=== PATIENT | female | born 1995 | race Caucasian/White ===

== ENCOUNTER 2017-07-02 16:19 | Inpatient (IN) | payer MEDICAID ==
[~2017-07-02] VITALS: Ht 157.5 cm; Wt 75.0 kg
[~2017-07-02 16:19] MED LIST: BUSP15 PO; DOCU250C91 PO; GABA-531 PO; LURA40 PO; MAGOX PO; MVITFE PO
[2017-07-02] MEDS ORDERED: HALO5 PO (16:48)
[2017-07-02 16:59] LABS: BASOPHILS % (AUTO) 0.1 % (0.0-2.0); EOSINOPHILS % (AUTO) 1.2 % (1.0-6.0); HEMATOCRIT 34.5 % (36-46); HEMOGLOBIN 11.5 g/dL (12.0-16.0); LYMPHOCYTES # (AUTO) 1.7 K/uL (1.0-4.8); LYMPHOCYTES % (AUTO) 20.5 % (22.0-44.0); MEAN CORPUSCULAR HEMOGLOBIN 25.9 pg (26.0-34.0); MEAN CORPUSCULAR HGB CONC 33.3 G/dL (31.0-37.0); MEAN CORPUSCULAR VOLUME 78 fL (80-100); MONOCYTES # (AUTO) 0.7 K/uL (0.1-1.0); MONOCYTES % (AUTO) 8.3 % (2.0-9.0); NEUTROPHILS # (AUTO) 5.9 K/uL (1.8-7.7); NEUTROPHILS % (AUTO) 69.9 % (40.0-70.0); PLATELET COUNT (AUTO) 319 K/uL (150-450); RED BLOOD CELL COUNT(AUTO) 4.44 MIL/uL (4.00-5.20); RED CELL DISTRIBUTION WIDTH 16.5 % (11.5-14.5); WHITE BLOOD COUNT (AUTO) 8.5 K/uL (4.5-11.0)
[2017-07-02 17:17] LABS: ANION GAP 8 mmol/L (8-16); CALCIUM, TOTAL 9.1 mg/dL (8.8-10.5); CARBON DIOXIDE 27 mmol/L (22-29); CHLORIDE 105 mmol/L (98-107); CREATININE 0.63 mg/dL (0.60-1.30); GLOMERULAR FILTR. RATE CALC > 60 mL/min (>60); POTASSIUM 4.2 mmol/L (3.5-5.1); SODIUM SERUM 140 mmol/L (136-145); UREA NITROGEN, BLOOD 13 mg/dL (7-18)
[2017-07-02 17:25] LABS: ALANINE AMINOTRANSFERASE 23 U/L (12-78); ALBUMIN 3.5 g/dL (3.4-5.0); ASPARTATE AMINOTRANSFERASE 22 U/L (15-37); TOTAL PROTEIN, SERUM 7.6 g/dL (6.4-8.2)
[2017-07-02 17:37] LABS: SALICYLATE 2.9 mg/dL (2.8-20.0)
[2017-07-02 17:45] LABS: BILIRUBIN,TOTAL 0.1 mg/dL (0.1-1.0)
[2017-07-02 18:08] LABS: ACETAMINOPHEN < 2 mcg/mL (10-30)
[2017-07-02 18:12] LABS: RBC MORPHOLOGY COMMENT ABNORMAL RBC MORPH
[2017-07-02] MEDS ORDERED: LORazepam 2 MG/ML VIAL IM ONE (20:45)
[2017-07-02] MEDS ORDERED: HALOPERIDOL LACTATE 5 MG/ML VIAL ONE (20:56)
[2017-07-02] MEDS ORDERED: DiphenhydrAMINE HCL 50 MG/ML VIAL ONE (20:56)
[2017-07-02] MEDS ORDERED: DiphenhydrAMINE HCL 50 MG/ML VIAL IM ONE (21:00)
[2017-07-02] MEDS ORDERED: HALOPERIDOL LACTATE 5 MG/ML VIAL IM ONE (21:00)
[2017-07-02 21:17] LABS: ACETAMINOPHEN < 2 mcg/mL (10-30)
[2017-07-02 21:35] LABS: APPEARANCE,URINE CLEAR (CLEAR); GLUCOSE, URINE (UA) NEGATIVE (NEGATIVE); KETONES,URINE NEGATIVE (NEGATIVE); LEUKOCYTE ESTERASE ,URINE NEGATIVE (NEGATIVE); OCCULT BLOOD,URINE NEGATIVE (NEGATIVE); PROTEIN,URINE NEGATIVE (NEGATIVE)
[2017-07-02 21:36] LABS: ADD UA MICROSCOPIC NO
[2017-07-02 21:48] LABS: THYROID STIMULATING HORMONE 5.35 uIU/mL (0.36-3.74)
[2017-07-03] MEDS: LORazepam 2 MG TABLET PO PRN ×3 (06:11→16:13)
[2017-07-03 08:10] VITALS: BP 130/87
[2017-07-03] MEDS ORDERED: BACITRACIN 28.4 GM OINTMENT TP PRN (10:45)
[2017-07-03] MEDS: GABAPENTIN 300 MG CAPSULE PO SCH ×3 (13:28→20:23)
[2017-07-03] MEDS ORDERED: INFLUENZA VIRUS VACCINE QVS 2017-18 (3YR+)/PF 60 MCG/0.5 ML SYRINGE IM ONE (14:15)
[2017-07-03] MEDS ORDERED: PNEUMOCOCCAL VACCINE POLYVALENT 0.5 ML VIAL [PPSV23] IM ONE (14:15)
[2017-07-04] MEDS: LORazepam 2 MG TABLET PO PRN ×3 (05:42→16:11)
[2017-07-04 06:11] VITALS: BP 120/65
[2017-07-04] MEDS: GABAPENTIN 300 MG CAPSULE PO SCH ×3 (08:15→16:11)
[2017-07-04] MEDS: NICOTINE 7 MG/24 HOUR PATCH TD SCH (08:15)
[2017-07-04 08:30] VITALS: BP 124/80
[2017-07-04] MEDS: ALBUTEROL SULFATE HFA 90 MCG/PUFF 8 GM INHALER IH PRN (08:36)
[2017-07-04] MEDS: DiphenhydrAMINE HCL 25 MG CAPSULE PO SCH (16:11)
[2017-07-04 18:10] VITALS: BP 123/73
[2017-07-04] MEDS: HALOPERIDOL 10 MG TABLET PO SCH (20:25)
[2017-07-04] MEDS: ZOLPIDEM TARTRATE 10 MG TABLET PO PRN (21:23)
[2017-07-05] MEDS: ALBUTEROL SULFATE HFA 90 MCG/PUFF 8 GM INHALER IH PRN (05:06)
[2017-07-05 05:22] VITALS: BP 123/78
[2017-07-05] MEDS: NICOTINE 7 MG/24 HOUR PATCH TD SCH (08:17)
[2017-07-05] MEDS: LORazepam 2 MG TABLET PO PRN ×2 (08:17→16:32)
[2017-07-05] MEDS: DiphenhydrAMINE HCL 25 MG CAPSULE PO SCH ×2 (08:17→16:32)
[2017-07-05] MEDS: GABAPENTIN 300 MG CAPSULE PO SCH ×3 (08:18→16:32)
[2017-07-05 08:30] VITALS: BP 112/70
[2017-07-05 16:49] VITALS: BP 123/77
[2017-07-05] MEDS: HALOPERIDOL 10 MG TABLET PO SCH (20:26)
[2017-07-05] MEDS: ZOLPIDEM TARTRATE 10 MG TABLET PO PRN (21:03)
[2017-07-06 06:05] VITALS: BP 121/73
[2017-07-06] MEDS: LORazepam 2 MG TABLET PO PRN ×2 (07:05→12:55)
[2017-07-06] MEDS: NICOTINE 7 MG/24 HOUR PATCH TD SCH (08:11)
[2017-07-06] MEDS: DiphenhydrAMINE HCL 25 MG CAPSULE PO SCH ×2 (08:11→16:52)
[2017-07-06] MEDS: GABAPENTIN 300 MG CAPSULE PO SCH ×3 (08:11→16:52)
[2017-07-06 08:42] VITALS: BP 122/75
[2017-07-06 16:29] VITALS: BP 139/72
[2017-07-06] MEDS: HALOPERIDOL 5 MG TABLET PO PRN (16:52)
[2017-07-06] MEDS: HALOPERIDOL 10 MG TABLET PO SCH (20:28)
[2017-07-06] MEDS: ZOLPIDEM TARTRATE 10 MG TABLET PO PRN (21:01)
[2017-07-07 06:33] VITALS: BP 122/79
[2017-07-07] MEDS: HALOPERIDOL 5 MG TABLET PO PRN (07:09)
[2017-07-07] MEDS: LORazepam 2 MG TABLET PO PRN (07:09)
[2017-07-07] MEDS: GABAPENTIN 300 MG CAPSULE PO SCH ×2 (08:09→12:35)
[2017-07-07] MEDS: DiphenhydrAMINE HCL 25 MG CAPSULE PO SCH (08:09)
[2017-07-07] MEDS: NICOTINE 7 MG/24 HOUR PATCH TD SCH (08:11)
[2017-07-07 08:28] VITALS: BP 112/77
[2017-07-07] MEDS ORDERED: DiphenhydrAMINE HCL 50 MG/ML VIAL ONE (10:05)
[2017-07-07] MEDS ORDERED: LORazepam 2 MG/ML VIAL ONE (10:05)
[2017-07-07] MEDS ORDERED: HALOPERIDOL LACTATE 5 MG/ML VIAL ONE (10:05)
[2017-07-07] MEDS ORDERED: GABA-531 PO (12:36)
[2017-07-07] MEDS ORDERED: DIPH25CA85 PO (12:37)
[2017-07-07] MEDS ORDERED: HALO10TA15 PO (12:37)
== END 2017-07-07 14:45 | disposition home or self-care (01) | DRG 750 ==
LOC: EEVIPCON 16:20 → EMS 16:20 → B3A 07-03 07:06 → B2S 07-07 14:39
PROVIDERS: ADMIT Psychiatry & Neurology Psychiatry; ATTEND Psychiatry & Neurology Psychiatry
DX: F25.9 Schizoaffective disorder, unspecified (principal); R45.851 Suicidal ideations; Z78.1 Physical restraint status; S51.812A Laceration without foreign body of left forearm, initial encounter; D64.9 Anemia, unspecified; E03.9 Hypothyroidism, unspecified; F31.9 Bipolar disorder, unspecified; F17.210 Nicotine dependence, cigarettes, uncomplicated; J45.909 Unspecified asthma, uncomplicated; S61.512A Laceration without foreign body of left wrist, initial encounter; X78.9XXA Intentional self-harm by unspecified sharp object, initial encounter; F15.90 Other stimulant use, unspecified, uncomplicated; F12.90 Cannabis use, unspecified, uncomplicated; Y93.89 Activity, other specified; Y92.89 Other specified places as the place of occurrence of the external cause; Z79.899 Other long term (current) drug therapy; Y99.8 Other external cause status
CPT/HCPCS: 84439; 84443; 93005; 96372; 99285; G0480; G0481; J1200; J1630; J2060; J3535

== ENCOUNTER 2017-07-07 23:45 | Emergency (ER) | payer MEDICAID, OTHER ==
[~2017-07-07] VITALS: Ht 157.5 cm; Wt 70.5 kg
[~2017-07-07 23:45] MED LIST changes: -BUSP15 PO; +DIPH25CA85 PO; -DOCU250C91 PO; +HALO10TA15 PO; +HALO5 PO; -LURA40 PO; -MAGOX PO; -MVITFE PO
[2017-07-08] MEDS ORDERED: ZOLPIDEM TARTRATE 10 MG TABLET PO ONE (00:45)
[2017-07-08 01:15] VITALS: BP 127/69
== END 2017-07-08 01:30 | disposition home or self-care (01) ==
LOC: EMS 23:46
DX: F41.9 Anxiety disorder, unspecified (principal); F31.9 Bipolar disorder, unspecified; G47.00 Insomnia, unspecified; F17.210 Nicotine dependence, cigarettes, uncomplicated; I10 Essential (primary) hypertension; J45.909 Unspecified asthma, uncomplicated
CPT/HCPCS: 99284; 99406

== ENCOUNTER 2017-07-08 11:59 | Inpatient (IN) | payer MEDICAID, OTHER ==
[~2017-07-08] VITALS: Ht 157.5 cm; Wt 76.6 kg
[~2017-07-08 11:59] MED LIST changes: -HALO5 PO
[2017-07-08] MEDS ORDERED: HALOPERIDOL LACTATE 5 MG/ML VIAL IM ONE (12:45)
[2017-07-08] MEDS ORDERED: DiphenhydrAMINE HCL 50 MG/ML VIAL IM ONE (12:45)
[2017-07-08] MEDS ORDERED: LORazepam 2 MG/ML VIAL IM ONE (12:45)
[2017-07-08 12:51] LABS: ANION GAP 11 mmol/L (8-16); CALCIUM, TOTAL 9.6 mg/dL (8.8-10.5); CARBON DIOXIDE 24 mmol/L (22-29); CHLORIDE 106 mmol/L (98-107); CREATININE 0.59 mg/dL (0.60-1.30); GLOMERULAR FILTR. RATE CALC > 60 mL/min (>60); GLUCOSE,RANDOM 117 mg/dL (70-110); POTASSIUM 3.6 mmol/L (3.5-5.1); SODIUM SERUM 141 mmol/L (136-145); UREA NITROGEN, BLOOD 8 mg/dL (7-18)
[2017-07-08 12:57] LABS: ALANINE AMINOTRANSFERASE 24 U/L (12-78); ALBUMIN 3.9 g/dL (3.4-5.0); ALKALINE PHOSPHATASE 96 U/L (46-116); ASPARTATE AMINOTRANSFERASE 19 U/L (15-37); BILIRUBIN,TOTAL 0.1 mg/dL (0.1-1.0); TOTAL PROTEIN, SERUM 7.9 g/dL (6.4-8.2)
[2017-07-08 13:02] LABS: AMPHET/METH SCREEN,URINE POSITIVE (NEGATIVE); BARBITURATE SCREEN, URINE NEGATIVE (NEGATIVE); BENZODIAZEPINES SCREEN,URINE NEGATIVE (NEGATIVE); CANNABINOID SCREEN,URINE POSITIVE (NEGATIVE); COCAINE SCREEN,URINE NEGATIVE (NEGATIVE); HCG,QUAL RESULT NEGATIVE (NEGATIVE); METHADONE SCREEN, URINE NEGATIVE (NEGATIVE); OPIATE SCREEN,URINE NEGATIVE (NEGATIVE); PHENCYCLIDINE SCREEN,URINE NEGATIVE (NEGATIVE)
[2017-07-08 13:14] LABS: EOSINOPHILS % (AUTO) 0.1 % (1.0-6.0); HEMATOCRIT 35.4 % (36-46); HEMOGLOBIN 11.8 g/dL (12.0-16.0); LYMPHOCYTES # (AUTO) 1.9 K/uL (1.0-4.8); LYMPHOCYTES % (AUTO) 14.9 % (22.0-44.0); MEAN CORPUSCULAR HEMOGLOBIN 25.4 pg (26.0-34.0); MEAN CORPUSCULAR HGB CONC 33.3 G/dL (31.0-37.0); MEAN CORPUSCULAR VOLUME 76 fL (80-100); MONOCYTES # (AUTO) 0.6 K/uL (0.1-1.0); MONOCYTES % (AUTO) 4.6 % (2.0-9.0); NEUTROPHILS # (AUTO) 10.3 K/uL (1.8-7.7); NEUTROPHILS % (AUTO) 80.4 % (40.0-70.0); PLATELET COUNT (AUTO) 360 K/uL (150-450); RED BLOOD CELL COUNT(AUTO) 4.64 MIL/uL (4.00-5.20); RED CELL DISTRIBUTION WIDTH 16.6 % (11.5-14.5)
[2017-07-08] MEDS ORDERED: NICOTINE 21 MG/24 HOUR PATCH TD ONE (14:00)
[2017-07-08] MEDS: HALOPERIDOL 5 MG TABLET PO PRN (17:51)
[2017-07-08] MEDS: LORazepam 2 MG TABLET PO PRN (17:51)
[2017-07-08 18:16] VITALS: BP 146/66
[2017-07-08] MEDS: HALOPERIDOL 10 MG TABLET PO SCH (20:35)
[2017-07-09 07:14] LABS: CHOL/HDL RATIO 3.1 (3.9-5.7)
[2017-07-09 08:00] VITALS: BP 103/59
[2017-07-09] MEDS: GABAPENTIN 300 MG CAPSULE PO SCH ×3 (08:23→17:43)
[2017-07-09] MEDS: DiphenhydrAMINE HCL 25 MG CAPSULE PO SCH ×2 (08:23→17:43)
[2017-07-09] MEDS: LORazepam 2 MG TABLET PO PRN ×2 (08:24→12:50)
[2017-07-09] MEDS: HALOPERIDOL 5 MG TABLET PO PRN (08:27)
[2017-07-09] MEDS ORDERED: ACETAMINOPHEN 325 MG TABLET PO PRN (17:00)
[2017-07-09] MEDS ORDERED: ALBUTEROL SULFATE HFA 90 MCG/PUFF 8 GM INHALER IH PRN (17:00)
[2017-07-09] MEDS ORDERED: IBUPROFEN 400 MG TABLET PO PRN (17:00)
[2017-07-09] MEDS: LevETIRAcetam 250 MG TABLET PO SCH (17:43)
[2017-07-09] MEDS: HALOPERIDOL 10 MG TABLET PO SCH (20:34)
[2017-07-10] MEDS ORDERED: INFLUENZA VIRUS VACCINE QVS 2017-18 (3YR+)/PF 60 MCG/0.5 ML SYRINGE IM ONE (02:00)
[2017-07-10] MEDS: LevETIRAcetam 250 MG TABLET PO SCH ×2 (08:38→17:35)
[2017-07-10] MEDS: DiphenhydrAMINE HCL 25 MG CAPSULE PO SCH ×2 (08:39→17:35)
[2017-07-10] MEDS: GABAPENTIN 300 MG CAPSULE PO SCH ×3 (08:39→17:35)
[2017-07-10 08:50] VITALS: BP 118/65
[2017-07-10] MEDS: LORazepam 2 MG TABLET PO PRN ×2 (08:55→18:12)
[2017-07-10] MEDS: HALOPERIDOL 5 MG TABLET PO PRN (08:56)
[2017-07-10] MEDS: NICOTINE 21 MG/24 HOUR PATCH TD SCH (09:51)
[2017-07-10 18:00] VITALS: BP 114/80
[2017-07-10] MEDS: HALOPERIDOL 10 MG TABLET PO SCH (20:15)
[2017-07-11 08:00] VITALS: BP 92/66
[2017-07-11] MEDS: GABAPENTIN 300 MG CAPSULE PO SCH ×3 (08:57→17:48)
[2017-07-11] MEDS: DiphenhydrAMINE HCL 25 MG CAPSULE PO SCH ×2 (08:57→17:48)
[2017-07-11] MEDS: LORazepam 2 MG TABLET PO PRN ×2 (08:57→14:16)
[2017-07-11] MEDS: NICOTINE 21 MG/24 HOUR PATCH TD SCH (08:58)
[2017-07-11] MEDS: LevETIRAcetam 250 MG TABLET PO SCH ×2 (08:58→17:48)
[2017-07-11 19:45] VITALS: BP 110/78
[2017-07-11] MEDS: HALOPERIDOL 10 MG TABLET PO SCH (21:33)
[2017-07-11] MEDS: ZOLPIDEM TARTRATE 10 MG TABLET PO PRN (21:36)
[2017-07-12] MEDS: GABAPENTIN 300 MG CAPSULE PO SCH ×3 (08:58→17:05)
[2017-07-12] MEDS: LORazepam 2 MG TABLET PO PRN ×2 (08:58→14:13)
[2017-07-12] MEDS: DiphenhydrAMINE HCL 25 MG CAPSULE PO SCH ×2 (08:58→17:07)
[2017-07-12] MEDS: HALOPERIDOL 5 MG TABLET PO PRN (08:58)
[2017-07-12] MEDS: NICOTINE 21 MG/24 HOUR PATCH TD SCH (09:08)
[2017-07-12] MEDS: LevETIRAcetam 250 MG TABLET PO SCH ×2 (09:11→17:04)
[2017-07-12 13:38] VITALS: BP 96/61
[2017-07-12 18:55] VITALS: BP 121/78
[2017-07-12] MEDS: HALOPERIDOL 10 MG TABLET PO SCH (21:40)
[2017-07-13] MEDS: ZOLPIDEM TARTRATE 10 MG TABLET PO PRN (01:08)
[2017-07-13 08:00] VITALS: BP 114/66
[2017-07-13] MEDS: LevETIRAcetam 250 MG TABLET PO SCH ×2 (09:23→16:29)
[2017-07-13] MEDS: DiphenhydrAMINE HCL 25 MG CAPSULE PO SCH ×2 (09:23→16:29)
[2017-07-13] MEDS: GABAPENTIN 300 MG CAPSULE PO SCH ×3 (09:23→16:29)
[2017-07-13] MEDS: NICOTINE 21 MG/24 HOUR PATCH TD SCH (09:24)
[2017-07-13] MEDS: LORazepam 2 MG TABLET PO PRN (11:37)
[2017-07-13 19:06] VITALS: BP 117/68
[2017-07-13] MEDS: HALOPERIDOL 10 MG TABLET PO SCH (21:33)
[2017-07-14] MEDS: ZOLPIDEM TARTRATE 10 MG TABLET PO PRN (02:49)
[2017-07-14 02:50] VITALS: BP 121/70
[2017-07-14 08:20] VITALS: BP 140/90
[2017-07-14] MEDS: LevETIRAcetam 250 MG TABLET PO SCH (08:25)
[2017-07-14] MEDS: DiphenhydrAMINE HCL 25 MG CAPSULE PO SCH (08:25)
[2017-07-14] MEDS: LORazepam 2 MG TABLET PO PRN ×2 (08:25→14:14)
[2017-07-14] MEDS: HALOPERIDOL 5 MG TABLET PO PRN (08:25)
[2017-07-14] MEDS: GABAPENTIN 300 MG CAPSULE PO SCH ×2 (08:25→12:23)
[2017-07-14] MEDS: NICOTINE 21 MG/24 HOUR PATCH TD SCH (08:25)
[2017-07-14 08:29] VITALS: BP 99/65
[2017-07-14] MEDS ORDERED: LEVE250T55 PO (09:35)
[2017-07-15] MEDS ORDERED: VENL50TA44 PO (14:40)
== END 2017-07-14 14:30 | disposition home or self-care (01) | DRG 750 ==
LOC: EDUNIT# 11:59 → EMS 12:03 → 3EC 16:27
PROVIDERS: ADMIT Psychiatry & Neurology Psychiatry; ATTEND Psychiatry & Neurology Psychiatry
DX: F25.9 Schizoaffective disorder, unspecified (principal); R45.850 Homicidal ideations; F31.9 Bipolar disorder, unspecified; G40.909 Epilepsy, unspecified, not intractable, without status epilepticus; J45.909 Unspecified asthma, uncomplicated; F17.210 Nicotine dependence, cigarettes, uncomplicated; D72.829 Elevated white blood cell count, unspecified; D64.9 Anemia, unspecified; F19.10 Other psychoactive substance abuse, uncomplicated; Z59.0 Homelessness; Z79.899 Other long term (current) drug therapy; Z88.8 Allergy status to other drugs, medicaments and biological substances; Z28.21 Immunization not carried out because of patient refusal; Z71.51 Drug abuse counseling and surveillance of drug abuser; Z71.6 Tobacco abuse counseling
CPT/HCPCS: 87081; 96372; 99285; G0480; J1200; J1630; J2060

== ENCOUNTER 2017-07-15 14:33 | Inpatient (IN) | payer MEDICAID, OTHER ==
[~2017-07-15] VITALS: Ht 157.5 cm; Wt 75.0 kg
[~2017-07-15 14:33] MED LIST changes: +LEVE250T55 PO
[2017-07-15] MEDS ORDERED: VENL50TA44 PO (14:40)
[2017-07-15 16:33] LABS: BASOPHILS % (AUTO) 0.3 % (0.0-2.0); EOSINOPHILS % (AUTO) 0.8 % (1.0-6.0); HEMATOCRIT 33.5 % (36-46); HEMOGLOBIN 11.2 g/dL (12.0-16.0); LYMPHOCYTES # (AUTO) 1.9 K/uL (1.0-4.8); LYMPHOCYTES % (AUTO) 19.5 % (22.0-44.0); MEAN CORPUSCULAR HEMOGLOBIN 25.5 pg (26.0-34.0); MEAN CORPUSCULAR HGB CONC 33.5 G/dL (31.0-37.0); MEAN CORPUSCULAR VOLUME 76 fL (80-100); MONOCYTES # (AUTO) 0.6 K/uL (0.1-1.0); MONOCYTES % (AUTO) 6.2 % (2.0-9.0); NEUTROPHILS # (AUTO) 7.3 K/uL (1.8-7.7); NEUTROPHILS % (AUTO) 73.2 % (40.0-70.0); PLATELET COUNT (AUTO) 338 K/uL (150-450); RED BLOOD CELL COUNT(AUTO) 4.41 MIL/uL (4.00-5.20); RED CELL DISTRIBUTION WIDTH 16.8 % (11.5-14.5); WHITE BLOOD COUNT (AUTO) 9.9 K/uL (4.5-11.0)
[2017-07-15] MEDS ORDERED: ACTIVATED CHARCOAL 50 GM/240 ML SUSPENSION PO ONE (16:45)
[2017-07-15 16:54] LABS: ANION GAP 6 mmol/L (8-16); CALCIUM, TOTAL 8.9 mg/dL (8.8-10.5); CARBON DIOXIDE 29 mmol/L (22-29); CHLORIDE 102 mmol/L (98-107); CREATININE 0.68 mg/dL (0.60-1.30); GLOMERULAR FILTR. RATE CALC > 60 mL/min (>60); POTASSIUM 3.7 mmol/L (3.5-5.1); SODIUM SERUM 137 mmol/L (136-145); UREA NITROGEN, BLOOD 11 mg/dL (7-18)
[2017-07-15 16:56] LABS: SALICYLATE < 2.8 mg/dL (2.8-20.0)
[2017-07-15 16:59] LABS: ALANINE AMINOTRANSFERASE 26 U/L (12-78); ALBUMIN 3.8 g/dL (3.4-5.0); ASPARTATE AMINOTRANSFERASE 23 U/L (15-37); BILIRUBIN,TOTAL 0.2 mg/dL (0.1-1.0); TOTAL PROTEIN, SERUM 7.7 g/dL (6.4-8.2)
[2017-07-15 17:24] LABS: ACETAMINOPHEN < 2 mcg/mL (10-30)
[2017-07-15] MEDS ORDERED: ZOLPIDEM TARTRATE 10 MG TABLET PO PRN (20:45)
[2017-07-15 20:56] LABS: RBC MORPHOLOGY COMMENT ABNORMAL RBC MORPH
[2017-07-15] MEDS: HALOPERIDOL 5 MG TABLET PO PRN (20:58)
[2017-07-15 21:28] VITALS: BP 134/76
[2017-07-15 21:45] LABS: APPEARANCE,URINE CLEAR (CLEAR); GLUCOSE, URINE (UA) NEGATIVE (NEGATIVE); KETONES,URINE NEGATIVE (NEGATIVE); LEUKOCYTE ESTERASE ,URINE NEGATIVE (NEGATIVE); OCCULT BLOOD,URINE LARGE (NEGATIVE); PROTEIN,URINE NEGATIVE (NEGATIVE)
[2017-07-15 21:48] VITALS: BP 134/76
[2017-07-15 21:51] LABS: ADD UA MICROSCOPIC YES
[2017-07-15 22:05] LABS: WBC,URINE 0-2 /HPF (0-5)
[2017-07-16 02:55] VITALS: BP 129/85
[2017-07-16] MEDS: LORazepam 2 MG TABLET PO PRN ×2 (06:14→12:30)
[2017-07-16 07:37] LABS: CHOL/HDL RATIO 3.1 (3.9-5.7)
[2017-07-16 08:05] VITALS: BP 126/85
[2017-07-16] MEDS: NICOTINE 14 MG/24 HOUR PATCH TD SCH (08:39)
[2017-07-16] MEDS: GABAPENTIN 300 MG CAPSULE PO SCH ×2 (13:14→17:41)
[2017-07-16] MEDS: HALOPERIDOL 5 MG TABLET PO PRN (14:04)
[2017-07-16] MEDS: DiphenhydrAMINE HCL 25 MG CAPSULE PO SCH (17:41)
[2017-07-16] MEDS ORDERED: ACETAMINOPHEN 325 MG TABLET PO PRN (20:15)
[2017-07-16] MEDS ORDERED: IBUPROFEN 400 MG TABLET PO PRN (20:15)
[2017-07-16] MEDS ORDERED: ALBUTEROL SULFATE HFA 90 MCG/PUFF 8 GM INHALER IH PRN (20:15)
[2017-07-16] MEDS: HALOPERIDOL 10 MG TABLET PO SCH (20:47)
[2017-07-17] MEDS: LORazepam 2 MG TABLET PO PRN ×2 (08:00→17:25)
[2017-07-17] MEDS: HALOPERIDOL 5 MG TABLET PO PRN (08:00)
[2017-07-17] MEDS: GABAPENTIN 300 MG CAPSULE PO SCH ×3 (09:00→17:23)
[2017-07-17] MEDS: DiphenhydrAMINE HCL 25 MG CAPSULE PO SCH ×3 (09:00→17:22)
[2017-07-17 09:10] VITALS: BP 114/59
[2017-07-17] MEDS: NICOTINE 14 MG/24 HOUR PATCH TD SCH (11:04)
[2017-07-17 18:00] VITALS: BP 121/71
[2017-07-17] MEDS: HALOPERIDOL 10 MG TABLET PO SCH (22:02)
[2017-07-18 04:59] VITALS: BP 125/71
[2017-07-18] MEDS: LORazepam 2 MG TABLET PO PRN ×2 (05:03→13:23)
[2017-07-18] MEDS: GABAPENTIN 300 MG CAPSULE PO SCH ×2 (09:16→13:08)
[2017-07-18] MEDS: DiphenhydrAMINE HCL 25 MG CAPSULE PO SCH (09:16)
[2017-07-18] MEDS: NICOTINE 14 MG/24 HOUR PATCH TD SCH (09:17)
[2017-07-18 10:07] VITALS: BP 136/79
[2017-07-18] MEDS: HALOPERIDOL 5 MG TABLET PO PRN (13:23)
== END 2017-07-18 15:10 | disposition home or self-care (01) | DRG 750 ==
LOC: EMS 14:35 → 3EI 20:12
PROVIDERS: ATTEND Psychiatry & Neurology Psychiatry
DX: F25.9 Schizoaffective disorder, unspecified (principal); R45.851 Suicidal ideations; G40.909 Epilepsy, unspecified, not intractable, without status epilepticus; J45.909 Unspecified asthma, uncomplicated; F31.9 Bipolar disorder, unspecified; F17.210 Nicotine dependence, cigarettes, uncomplicated; D64.9 Anemia, unspecified; E78.5 Hyperlipidemia, unspecified; F10.10 Alcohol abuse, uncomplicated; Z91.14 Patient's other noncompliance with medication regimen; Z88.8 Allergy status to other drugs, medicaments and biological substances; Z79.899 Other long term (current) drug therapy
CPT/HCPCS: 80307; 93005; 99291; G0480; G0481